=== PATIENT | male | born 1960 | race Caucasian/White ===

== ENCOUNTER 2024-05-04 12:35 | Outpatient (OUT) | payer OTHER, SELFPAY ==
--- NOTE | 2024-05-04 | XR_ITS ---
The [address] [address] Patient Name: KEYLA SANTOYO MRN: [id number] date: 1960 Sex: M Assigned Patient Location: [facility] Current Patient Location: [facility] Accession/Order Number: [id number] Exam Date: 05/04/2024 12:55 Report Date: 05/04/2024 13:08 At the request of: RUDY FRAGOSO Procedure: XR tibia fibula LT 2V PROCEDURE: XR tibia fibula LT 2V HISTORY: left nye injury COMPARISON: None. FINDINGS: BONES:No fracture, acute abnormality, or significant arthropathy. SOFT TISSUES:No visible soft tissue swelling. EFFUSION:None visible. OTHER: Negative. XR/XR tibia fibula LT 2V IMPRESSION: 1. No acute bone abnormality or significant degenerative changes. No suspicious bone lesion. Electronically authenticated by: NELIDA COLON Date: 05/04/2024 13:08
== END 2024-05-04 12:36 | disposition home or self-care (01) ==
LOC: RAD 12:40
PROVIDERS: Visit Provider Nurse Practitioner Family
DX: S80.12XA Contusion of left lower leg, initial encounter (principal)
CPT/HCPCS: 73590